=== PATIENT | female | born 1950 | race Caucasian/White ===

== ENCOUNTER 2023-10-05 06:01 | Day surgery (SDC) | payer BC, SELFPAY ==
[2023-10-02 13:48] VITALS: BMI 32.3
[2023-10-02 14:19] LABS: Hematocrit 39.6 % (37.0-47.0); Hemoglobin 13.3 g/dL (12.0-16.0); Mean Corp Hgb Conc. 33.6 g/dL (33.0-37.0); Mean Corpuscular Hgb 29.4 pg (27.0-31.0); Mean Corpuscular Volume 87.6 fL (81.0-99.0); Mean Platelet Volume 9.3 fL (7.4-10.4); Platelet Count 267 10^3/uL (130-400); Red Blood Cell Count 4.52 10^6/uL (4.20-5.40); Red Cell Dist. Width 12.6 % (11.5-14.5)
[2023-10-05] VITALS (20 sets, daily range): BP systolic 90–142; BP diastolic 31–88; BMI 32.3
[2023-10-05] MEDS: NORMOSOL-R 1000 IV (07:01)
--- NOTE | 2023-10-05 12:36 | PTCARENOTE ---
pt. c/o of left eye pain, eye reddened and watering, Dr. Gonzalez notified
[2023-10-05] MEDS: ERYTHROMYCIN 0.5% OPHTHALMIC OINTMENT 1 APPLIC OPHTH ×2 (13:09→22:00)
--- NOTE | 2023-10-05 13:25 | PTCARENOTE ---
1310 Addendum- erythromycin drops ordered by Dr. Gonzalez, applied to pt. left eye will alittle pain relief.
[2023-10-05] MEDS: ZOFRAN 4 MG IV (13:42)
[2023-10-05] MEDS: COMPAZINE 5 MG IV (14:47)
[2023-10-05] MEDS: ERYTHROMYCIN 0.5% OPHTHALMIC OINTMENT OPHTH (21:11)
[2023-10-06 02:56] VITALS: BP 108/61
[2023-10-06] MEDS: TYLENOL 650 MG PO (05:27)
[2023-10-06 07:40] VITALS: BP 125/74
[2023-10-06] MEDS: ERYTHROMYCIN 0.5% OPHTHALMIC OINTMENT 1 APPLIC OPHTH (08:36)
--- NOTE | 2023-10-06 08:43 | W.PN.ENT ---
Today's Communication
-
seen at bedside
Impression / Plan
-
drain removed
may shower later today or tomorrow
will discharge to home
follow up on 10/11/23 as scheduled in office
Subjective Data
-
doing well 1 day s/p right parotidectomy
complicated by hyperemesis and mild left corneal abrasion
now much improved
Objective Data
-
Vital Signs
Temp Pulse Resp BP Pulse Ox
98.9 F 82 16 108/61 94
10/06/23 02:56 10/06/23 02:56 10/06/23 02:56 10/06/23 02:56 10/06/23 02:56
Intake & Output
10/05/23 10/06/23 10/07/23
06:59 06:59 06:59
Intake:
IV fluids (Total) 150 / 150
normosol 150 / 150
Lab Results
10/02/23 13:20
Physical Exam
-
flaps flat, no collection
facial nerve intact
Chest: Clear
Respiratory: Clear
Data Reviewed
-
Radiology Results: Report Reviewed
--- NOTE | 2023-10-06 10:03 | CM ---
CM following re: discharge planning.
Reviewed pt's chart, met with pt.
Pt is a 72 year old female, admitted with SDC status and primary dx POD #1 s/p right parotidectomy. Pt reports she feels well.
Pt reports she lives with sister in a [address], 2 steps to enter, has supportive daughter who is a RN and she lives half of block away. Pt described herself as independent in all areas [employer] THER[employer]., works, drives. No DME, VN or SNF history. Discharge order is
noted Pt is aware, expressed her agreement with discharge. Pt stated she does not need any after care VN services and her daughter will transport home.
PCP: Riaz Feldman
Pharmacy: [facility]
D/C plan: home no needs. Daughter to transport.
--- NOTE | 2023-10-06 11:15 | PTCARENOTE ---
Patient ready for discharge. Removed IV.
Went over discharge instructions with patient and patient's daughter. Patient wheeled out to main lobby/taken home by daughter.
== END 2023-10-06 11:15 | disposition home or self-care (01) ==
LOC: SDS 06:01
PROVIDERS: ATTENDING PHYSICIAN Otolaryngology Facial Plastic Surgery; FAMILY PHYSICIAN Internal Medicine; OTHER PHYSICIAN Dermatology Dermatopathology
DX: D11.0 Benign neoplasm of parotid gland (principal); R49.8 Other voice and resonance disorders; R13.12 Dysphagia, oropharyngeal phase
CPT/HCPCS: 42415; 88307; 36415; 85027; 93005